=== PATIENT | male | born 1940 | race Caucasian/White ===

== ENCOUNTER 2017-03-16 06:33 | Observation (INO) | payer MEDICARE, BC ==
[~2017-03-16] VITALS: Ht 172.7 cm; Wt 93.2 kg
--- NOTE | ~2017-03-16 | OR ---
PATIENT'S NAME: RAMA DYER [facility] AGE: 76 Y [address] ROOM: [place] [address] LOCATION: [facility] [place] ADMIT DATE: 03/16/2017 OR/Procedure Report DISCHARGE DATE: FAMILY PHYSICIAN: SHERYL TIMMONS MD ATTENDING PHYSICIAN: Bryan Carty V SURGEON: Bryan Carty MD PHYSICS FACULTY MEMBER: Resident: Carmelita Valle, ENT Resident PGY5 DATE OF PROCEDURE: 03/16/2017 PREOPERATIVE DIAGNOSIS: Left parotid mass and recurrent sialoadenitis. POSTOPERATIVE DIAGNOSIS: Left parotid mass and recurrent sialoadenitis. PROCEDURE PERFORMED: Left superficial parotidectomy with facial nerve dissection. ANESTHESIA: General endotracheal anesthesia. ESTIMATED BLOOD LOSS: 20 mL. SPECIMEN: Left superficial parotidectomy. FINDINGS: There was a lipomatous like mass in the superior portion of the parotid gland. No discrete masses were seen or palpated. The facial nerve was anatomically and physiologically intact at the conclusion of the procedure. INDICATIONS FOR PROCEDURE: Rama Dyer is a 76-year-old male who has recurrent left facial swelling and pain. It was recommended that he undergo a left superficial parotidectomy. PROCEDURE DETAILS: The patient was seen in the preoperative holding area. Informed written consent was obtained from the patient for a left superficial parotidectomy. After full knowledge of the risks, benefits, and alternatives, the patient wished to proceed. The patient was taken to the operating room, placed on the operating room table. General endotracheal anesthesia was induced without any difficulty. A time-out was performed identifying the patient, as well as the procedure to be performed. Bilateral sequential compression stockings were placed and the patient was actively warmed. We designed a modified Dionicio incision on the patient's left side and infiltrated this premarked incision with local anesthetic. The patient was then prepped and draped in a normal sterile fashion. A #15 blade was used to incise our premarked modified Dionicio incision. The PATIENT'S NAME: RAMA DYER [facility] AGE: 76 Y [address] ROOM: [place] [address] LOCATION: [facility] [place] ADMIT DATE: 03/16/2017 OR/Procedure Report DISCHARGE DATE: FAMILY PHYSICIAN: SHERYL TIMMONS MD ATTENDING PHYSICIAN: Bryan Carty V elevated skin flaps in a sub-SMAS layer and carried this down into the subplatysmal area in the neck. Resection in front of the tragal cartilage, the parotid gland from the tragal cartilage. We continued this dissection down inferiorly to identify the anterior border of the sternocleidomastoid muscle. We the parotid from the anterior portion of the SCM. We came across the greater auricular nerve and divided this and tied the stump of the nerve. We then went to identify the facial nerve. It was found in its normal anatomic location, after we found the tragal pointer and the tympanomastoid suture. We followed the nerve anteriorly until we found that has anserine in the upper and lower divisions. We followed the lower division first and then dissected the parotid gland off superficial to this and performed an inferior flanking maneuver in order to free deep parotid tissue from the surrounding tissue. We then went back up to the upper division and in a similar fashion followed the nerve up superiorly and performed a superior flanking maneuver in order to free off the parotid tissue. We then meticulously dissected the parotid off the facial nerve and its multiple branches. We did stimulate the nerve and found that it was anatomically intact. After tracing out all of the branches of the facial nerve, we were able to remove the superficial parotidectomy specimen for permanent pathology. We then achieved hemostasis using a combination of ties and electrocautery. The wound was then copiously irrigated with saline mixed with Ancef. A drain was placed into the wound bed and brought out to the inferior portion of the incision. We then turned our attention to closing the wound. The dermis was closed with 4-0 Vicryl suture in a deep buried fashion. The skin was closed with a 6-0 nylon suture. Interrupted sutures were used to the inferior portion of the wound and then a running locking technique was used to close the remainder of the incision. This marked the conclusion of the procedure. All sponge and needle counts were correct x2. The patient was passed back to Anesthesia where he was extubated without any difficulty and transferred to the PACU in stable condition. CARMELITA VALLE, ENT RESIDENT PGY5 FOR MD RADHA HARP/jeremy /[id number] d: 03/16/17 1525 t: 03/23/17 0957, OPERATIVE SUMMARY
[~2017-03-16 06:33] MED LIST: ASPIRIN325 MG PO; ASPIRIN500 MG; BACTRIM DS1 TAB; CALCIUM + VITA1 EACH PO; CLARITIN10 MG PO; CORDARONE,PACE200 MG PO; COUMADIN **IA7.5 MG PO; CPAP INH; DELTASONE10 MG; DELTASONE5 MG PO; FOLIC ACID1 MG PO; LASIX40 MG PO; LOPRESSOR25 MG PO; NAPROSYN500 M1; ORENCIA250 MG IV; PRADAXA150 MG PO; PROTONIX40 MG PO; TERAZOSIN HCL10 MG PO; TREXALL10 MG PO; ULTRAM50 MG PO; VITAMIN D2000 UNIT PO; ZESTRIL2.5 MG PO; ZOCOR40 MG PO; ZYRTEC10 MG PO
[2017-03-16 07:18] LABS: BASOPHIL % 0.5 %; EOSINOPHIL # 0.1 K/uL (0.0-0.5); EOSINOPHIL % 1.6 %; HEMATOCRIT 45.3 % (37.0-53.0); HEMOGLOBIN 15.7 g/dL (11.0-16.0); IMMATURE GRANULOCYTE % 0.5 %; LYMPHOCYTE # 1.5 K/uL (0.8-4.0); LYMPHOCYTE % 22.8 %; MCH 32.8 pg (27.0-34.0); MCHC 34.7 gm/dL (32.0-36.5); MCV 94.6 fl (83.0-98.0); MONOCYTE # 0.7 K/uL (0.0-1.0); MONOCYTE % 11.2 %; MPV 9.9 fl (9.4-12.4); NEUTROPHIL # (ANC) 4.1 K/uL (1.4-9.0); NEUTROPHIL % 63.4 %; NRBC % 0 /100WBC (0-0.00); PLATELET COUNT 200 K/uL (150-450); RBC 4.79 M/uL (3.50-5.50); RDW-CV 13.1 % (11.9-14.6); WBC 6.5 K/uL (4.0-11.0)
[2017-03-16 07:25] LABS: INR - (THERAPEUTIC) 0.95 (0.92-1.07)
[2017-03-16 07:35] LABS: ALBUMIN 3.5 gm/dL (3.5-5.0); ANION GAP 14.8 (10.0-19.0); CALCIUM 9.2 mg/dL (8.5-10.5); CREATININE 1.5 mg/dL (0.6-1.3); POTASSIUM 3.8 mMol/L (3.7-5.1); TOTAL BILIRUBIN 0.5 mg/dL (0.0-1.5); TOTAL PROTEIN 6.7 g/dL (6.0-8.4)
--- NOTE | 2017-03-16 15:09 | NUR ---
Significant Event: Alert/oriented x 3. No neurological deficits noted. BP hypertensive at times, bradycardic at times. Incision to left face and left neck sutured and approximated. CHULA drain intact, draining sanguinous fluid. Dressing to CHULA site dry/intact. c/o pain to left neck, rates it 4-5/10. LR at 100 ml/hr into right hand. Follow up: Restart home meds. Pain management.
--- NOTE | 2017-03-17 05:11 | NUR ---
Significant Event: Sleeping for long period tonight. Afebrile, all other VSS. Wears CPAP at NOC. [place] (1 tab) given x3 lat at 0317 for pain. Up in room with minimal assistance. Drinking well, voiding well. Stool x1 this shift. PIV patent and saline locked. Incision to L) face/neck approximated, sutured.. CHULA drainin place with 12ml bloody drainage out. Plan for home later today. Follow up:
[2017-03-17] MEDS ORDERED: NORCO 5-325 TA1 EACH PO (09:27)
[2017-03-17] MEDS ORDERED: BACITRACIN1 PKT TOP (09:30)
--- NOTE | 2017-03-17 10:14 | NUR ---
DISCHARGE: D: ORDERS RECEIVED FOR THE PATIENT TO BE DISCHARGED TODAY TO HOME. I: DISMISSAL INSTRUCTIONS PREPARED AND REVIEWED WITH THE PATIENT AND HIS FAMILY VIRTUALLY. THE FOLLOWING INFORMATION WAS DISCUSSED INCLUDING [employer] TEACHING SHEET PROVIDED: PAROTIDECTOMY, INCISION CARE, BACITRACIN, NORCO AND PREVENTING DVT. REVIEWED NEW PRESCRIPTIONS, SIDE EFFECTS AND THAT THEY WOULD NEED TO TAKE THEM PRESCRIPTIONS TO THE PHARMACY OF THERE CHOICE. R: THE PATIENT AND FAMILY BOTH VERBALIZED UNDERSTANDING OF THE DISMISSAL EDUCATION AT THE TIME OF TEACHING WITH NO FURTHER QUESTIONS. P: THE ABOVE INFORMATION WAS SHARED WITH THE PRIMARY NURSE AND THE CHARGE NURSE THAT THE DISMISSAL EDUCATION WAS COMPLETED. THE PATIENT IS READY FOR DISMISSAL TO THE [facility]ONT [facility] VIA WHEEL CHAIR BY NURSING STAFF.
[2017-03-17] MEDS ORDERED: HYDROGEN PEROXID1 ML TOP (10:32)
== END 2017-03-17 11:30 | disposition disaster alternative care site (69) ==
LOC: GMSU 06:33 → GSDC 06:33 → GPOC 07:00 → GMSU 10:59 → GSDC 11:00 → GMSU 11:00 → GPOC 11:00 → GMSU 03-17 11:30
PROVIDERS: ADMIT Otolaryngology
PROC: 0CB90ZZ Excision of Left Parotid Gland, Open Approach (ICD-10-PCS; principal; 2017-03-16)
PROC: 00BM0ZZ Excision of Facial Nerve, Open Approach (ICD-10-PCS; 2017-03-16)
DX: K11.22 Acute recurrent sialoadenitis (principal); K11.8 Other diseases of salivary glands; I42.0 Dilated cardiomyopathy; I48.0 Paroxysmal atrial fibrillation; G47.33 Obstructive sleep apnea (adult) (pediatric); E78.5 Hyperlipidemia, unspecified; I11.0 Hypertensive heart disease with heart failure; K21.9 Gastro-esophageal reflux disease without esophagitis; I50.9 Heart failure, unspecified; M19.90 Unspecified osteoarthritis, unspecified site; Z98.890 Other specified postprocedural states; Z96.653 Presence of artificial knee joint, bilateral; Z99.89 Dependence on other enabling machines and devices; Z79.01 Long term (current) use of anticoagulants
CPT/HCPCS: G0378; J2001; J3010; J7120; J7512